=== PATIENT | female | born 1945 | race Caucasian/White ===

== ENCOUNTER → 2017-05-03 | Outpatient (CLI) | payer MEDICARE, BC | END | disposition home or self-care (01) | LOC: PCVCCLINIC 13:04 | DX: I48.2 Chronic atrial fibrillation (principal); E66.01 Morbid (severe) obesity due to excess calories; E11.69 Type 2 diabetes mellitus with other specified complication; I10 Essential (primary) hypertension; G47.30 Sleep apnea, unspecified; E78.00 Pure hypercholesterolemia, unspecified; R94.31 Abnormal electrocardiogram [ECG] [EKG]; Z68.44 Body mass index [BMI] 60.0-69.9, adult; Z87.891 Personal history of nicotine dependence; Z79.82 Long term (current) use of aspirin; Z79.899 Other long term (current) drug therapy | CPT/HCPCS: 80061; 93005; G0463 ==

== ENCOUNTER → 2018-02-20 | Outpatient (CLI) | payer MEDICARE, BC ==
--- NOTE | 2018-02-20 15:30 | PCVCIMAG ---
APPROVED REPORT Study performed: 02/20/2018 14:04:00 EXAM: Comprehensive 2D, Doppler, and color-flow Echocardiogram Patient Location: Echo lab Room #: 2Status: routine BSA: 1.77 HR: 60 bpmBP: 122/90 mmHg Rhythm: Atrial Fibrillation Other Information Study Quality: Adequate Risk Factors: Cardiac Risk Factors: HTN, DM,obesity, Hyperlipidemia Indications Diabetes Atrial Fibrillation Hypertension/HDD BINH 2D Dimensions IVSd: 6.81 (7-11mm)LVOT Diam: 19.74 (18-24mm) LVDd: 48.99 mm PWd: 7.18 (7-11mm)Ascending Ao: 24.90 (22-36mm) LVDs: 36.31 (25-40mm) Left Atrium: 36.23 (27-40mm) Aortic Root: 20.82 mm LV Single Plane 4CH: 49.10 % LV Single Plane 2CH: 55.01 % Biplane EF: 52.5 % Volumes Left Atrial Volume (Systole) Single Plane 4CH: 73.70 mLSingle Plane 2CH: 68.36 mL Biplane LA Volume: 74.00 mLLA ESV Index: 41.00 mL/m2 Aortic Valve AoV Peak Kartik.: 1.40 m/s AO Peak Gr.: 7.80 mmHgLVOT Max P.10 mmHg LVOT Max V: 0.68 m/s CRAIG Vmax: 1.50 cm2 Mitral Valve MV E Max Kartik.: 1.36 m/s MV PHT: 53.81 ms MVA (PHT): 4.09 cm2 IVRT: 76.12 ms TDI E/Lateral E': 15.11E/Medial E': 15.11 Medial E' Kartik.: 0.09 m/s Lateral E' Kartik.: 0.09 m/s Pulmonary Valve PV Peak Kartik.: 0.84 m/sPV Peak Gr.: 2.79 mmHg Pulmonary Vein P Vein S: 0.20 m/s P Vein D: 0.50 m/s P Vein S/D Ratio: 0.40 Tricuspid Valve TR Peak Kartik.: 2.44 m/s TR Peak Gr.: 23.89 mmHg TV Vmax: 0.71 m/sPA Pressure: 31.00 mmHg Left Ventricle The left ventricle is normal size. There is normal LV segmental wall motion. There is normal left ventricular wall thickness. Left ventricular systolic function is normal. The left ventricular ejection fraction is within the normal range. LVEF is 50-55%. This study is not technically sufficient to allow evaluation of the LV diastolic function due to atrial fibrillation. Right Ventricle The right ventricle is normal size. The right ventricular systolic function is normal. Atria Left atrium is mildly dilated. Right atrium is mildly dilated. Aortic Valve Aortic valve is trileaflet. Aortic valve leaflets are mildly sclerotic but open well. No aortic regurgitation is present. There is no aortic valvular stenosis. Mitral Valve Moderate mitral annular calcification. Mitral valve leaflets are mildly thickened. There is no mitral valve regurgitation noted. No evidence of mitral valve stenosis. Tricuspid Valve The tricuspid valve is normal in structure. Mild tricuspid regurgitation with a PA pressure of 31 mmHg. Pulmonic Valve The pulmonary valve is normal in structure. There is no pulmonic valvular regurgitation. Great Vessels The aortic root is normal in size. The ascending aorta is normal in size. Aortic arch is not well visualized. IVC is normal in size and collapses >50% with inspiration. Pericardium There is no pericardial effusion. There is no pleural effusion. <Conclusion> The left ventricle is normal size. LVEF is 50-55%. This study is not technically sufficient to allow evaluation of the LV diastolic function due to atrial fibrillation. The right ventricle is normal size. Left atrium is mildly dilated. Right atrium is mildly dilated. Aortic valve is trileaflet. Aortic valve leaflets are mildly sclerotic but open well. There is no aortic valvular stenosis. Moderate mitral annular calcification. Mitral valve leaflets are mildly thickened. There is no mitral valve regurgitation noted. Mild tricuspid regurgitation with a PA pressure of 31 mmHg. The aortic root is normal in size. There is no pericardial effusion.
== END | disposition home or self-care (01) ==
LOC: PCVCIMAG 13:00
PROVIDERS: ATTEND Internal Medicine Cardiovascular Disease
DX: I07.1 Rheumatic tricuspid insufficiency (principal); E78.00 Pure hypercholesterolemia, unspecified; I48.1 Persistent atrial fibrillation; I10 Essential (primary) hypertension; E11.69 Type 2 diabetes mellitus with other specified complication; G47.30 Sleep apnea, unspecified; E66.9 Obesity, unspecified; E78.5 Hyperlipidemia, unspecified; G47.33 Obstructive sleep apnea (adult) (pediatric); E03.9 Hypothyroidism, unspecified; Z98.84 Bariatric surgery status; Z87.891 Personal history of nicotine dependence
CPT/HCPCS: 36415; 80061; 93005; 93306; G0463